=== PATIENT | female | born 1985 | race Caucasian/White ===

== ENCOUNTER 2023-01-10 12:17 | Day surgery (SDC) | payer BC ==
[~2023-01-10] VITALS: Ht 149.9 cm; Wt 84.8 kg
[2023-01-10] MEDS ORDERED: fentaNYL CITRATE/PF 100 MCG/2 ML AMP ONE (12:49)
[2023-01-10] MEDS ORDERED: MIDAZOLAM HCL 5 MG/5 ML VIAL ONE ×2 (12:50→14:38)
[2023-01-10] MEDS ORDERED: SIMETHICONE 40 MG/0.6 ML ML ONE (13:03)
[2023-01-10 13:59] LABS: HCG,QUAL RESULT NEGATIVE (NEGATIVE)
[2023-01-10 14:25] VITALS: O2SAT 99
[2023-01-10 16:59] VITALS: BP_SYST 151; PULSE 94; RESP 18; TEMP 98
[2023-01-11] MEDS ORDERED: POLY17PO4 PO (03:04)
[2023-01-11] MEDS ORDERED: OMEP40CA20 PO (03:04)
[2023-01-11] MEDS ORDERED: CEPH-548 PO (03:04)
== END 2023-01-10 15:40 | disposition home or self-care (01) ==
LOC: SDS 12:17 → SMU 12:20 → SDS 15:40
PROVIDERS: ATTEND Surgery
DX: R10.13 Epigastric pain (principal); K29.50 Unspecified chronic gastritis without bleeding; K20.90 Esophagitis, unspecified without bleeding; K44.9 Diaphragmatic hernia without obstruction or gangrene
CPT/HCPCS: 43239; 99152; 84703; 88305; 88312; 88313; G0378; J2250; J3010

== ENCOUNTER 2023-01-10 22:55 | Emergency (ER) | payer BC ==
[~2023-01-10] VITALS: Ht 149.9 cm; Wt 84.8 kg
[2023-01-10 23:10] VITALS: BP_SYST 138; PULSE 77; RESP 16; TEMP 97.9; O2SAT 97
[2023-01-11 00:28] LABS: BASOPHILS # (AUTO) 0.1 K/uL (0.0-0.2); BASOPHILS % (AUTO) 1.2 % (0.0-2.0); EOSINOPHILS # (AUTO) 0.3 K/uL (0.0-0.4); EOSINOPHILS % (AUTO) 4.7 % (0.0-4.0); HEMATOCRIT 40.3 % (36-48); HEMOGLOBIN 13.3 g/dL (12.0-16.0); LYMPHOCYTES # (AUTO) 2.7 K/uL (1.0-5.5); LYMPHOCYTES % (AUTO) 39.5 % (20.5-51.5); MEAN CORPUSCULAR HEMOGLOBIN 29 pg (27-31); MEAN CORPUSCULAR HGB CONC 33 % (32-36); MEAN CORPUSCULAR VOLUME 88 fL (79.0-98.0); MONOCYTES # (AUTO) 0.4 K/uL (0.0-1.0); NEUTROPHILS # (AUTO) 3.4 K/uL (1.8-7.7); NEUTROPHILS % (AUTO) 48.6 % (40.0-70.0); PLATELET COUNT (AUTO) 336 K/uL (130-430); RED BLOOD CELL COUNT(AUTO) 4.57 MIL/uL (4.2-6.2); RED CELL DISTRIBUTION WIDTH 13.4 % (9.0-15.0)
[2023-01-11 00:43] LABS: CALCIUM 8.8 mg/dL (8.4-11.0); CREATININE 0.71 mg/dL (0.55-1.30); POTASSIUM 3.9 mmol/L (3.5-5.1)
[2023-01-11 00:47] LABS: ALBUMIN 3.4 g/dL (3.4-4.8); TOTAL BILIRUBIN 0.3 mg/dL (0.0-1.0)
[2023-01-11 01:29] LABS: BILIRUBIN,URINE NEGATIVE (NEGATIVE); BLOOD, URINE 1+ (NEGATIVE); CLARITY/URINE Clear (CLEAR); COLOR,URINE YELLOW (YELLOW); GLUCOSE,URINE NEGATIVE (NEGATIVE); NITRITE, URINE NEGATIVE (NEGATIVE); PROTEIN URINE NEGATIVE (NEGATIVE); UROBILINOGEN,URINE 0.2 (0.2-1.0)
[2023-01-11 01:40] LABS: KETONES,URINE NEGATIVE (NEGATIVE); LEUKOCYTE ESTERASE ,URINE NEGATIVE (NEGATIVE)
[2023-01-11] MEDS ORDERED: FAMOTIDINE 20 MG TABLET PO ONE (01:45)
[2023-01-11] MEDS ORDERED: MAG-AL HYDROX/SIMETH 30 ML UDC PO ONE (01:45)
[2023-01-11] MEDS ORDERED: ONDANSETRON 4 MG ODT TAB PO ONE (01:45)
[2023-01-11] MEDS ORDERED: KETOROLAC TROMETHAMINE 15 MG VIAL IM ONE (02:45)
[2023-01-11 02:50] LABS: BACTERIA,URINE None Seen /HPF (None Seen)
[2023-01-11] MEDS ORDERED: OMEP40CA20 PO (03:04)
[2023-01-11] MEDS ORDERED: CEPH-548 PO (03:04)
[2023-01-11] MEDS ORDERED: POLY17PO4 PO (03:04)
[2023-01-11 03:40] VITALS: BP_SYST 112; PULSE 50; RESP 20; TEMP 97.9; O2SAT 97
== END 2023-01-11 03:40 | disposition home or self-care (01) ==
LOC: SED 22:55
DX: N39.0 Urinary tract infection, site not specified (principal); R10.13 Epigastric pain; R11.0 Nausea; Z88.5 Allergy status to narcotic agent; Z88.6 Allergy status to analgesic agent; Z79.899 Other long term (current) drug therapy
CPT/HCPCS: 99284; 80053; 83690; 85025; 36415; 74021; 81025; 81003; 81000; 96374; 71045; Q0162; J1885